=== PATIENT | female | born 2000 | race Caucasian/White ===

== ENCOUNTER 2018-03-16 18:20 | Inpatient (IN) | payer OTHER ==
[~2018-03-16] VITALS: Ht 149.9 cm; Wt 61.2 kg
[2018-03-16] MEDS ORDERED: TERBUTALINE 1 MG/ML VIAL SUBQ SCH (18:40)
[2018-03-16] MEDS ORDERED: TERBUTALINE 1 MG/ML VIAL SUBQ ONE ×2 (19:26→20:00)
[2018-03-16] MEDS ORDERED: BETAMETH ACET/BETAMETH NA PH 30 MG/5 ML VIAL IM ONE ×2 (19:35→20:22)
[2018-03-16] MEDS: LACTATED RINGERS 1,000 ML IV SCH (20:08)
[2018-03-16] MEDS ORDERED: NALBUPHINE 10 MG/ML AMP IVP PRN ×2 (20:25→20:40)
[2018-03-16 21:09] LABS: APPEARANCE,URINE CLEAR (CLEAR); BILIRUBIN,URINE NEGATIVE (NEGATIVE); BLOOD, URINE NEGATIVE (NEGATIVE); COLOR,URINE YELLOW (YELLOW); LEUKOCYTE ESTERASE ,URINE NEGATIVE (NEGATIVE); NITRITE, URINE NEGATIVE (NEGATIVE); UGLUCOSE NEGATIVE (NEGATIVE)
[2018-03-16 21:09] LABS: BASOPHILS % (AUTO) 0.3 % (0.0-2.0); EOSINOPHILS # (AUTO) 0.1 K/uL (0-0.4); EOSINOPHILS % (AUTO) 0.4 % (0.0-4.0); HEMATOCRIT 37.4 % (36-48); HEMOGLOBIN 12.4 g/dL (12.0-16.0); LYMPHOCYTES # (AUTO) 2.3 K/uL (2.5-16.5); LYMPHOCYTES % (AUTO) 18.9 % (20.5-51.1); MEAN CORPUSCULAR HEMOGLOBIN 30 pg (27-31); MEAN CORPUSCULAR HGB CONC 33 g/dL (33-37); MEAN CORPUSCULAR VOLUME 90.4 fL (80-94); MONOCYTES # (AUTO) 0.7 K/uL (0.8-1.0); MONOCYTES % (AUTO) 5.9 % (1.7-9.3); NEUTROPHILS # (AUTO) 9.2 K/uL (1.8-7.7); NEUTROPHILS % (AUTO) 74.5 % (42.2-75.2); PLATELET COUNT (AUTO) 294 K/uL (140-450); RED BLOOD CELL COUNT(AUTO) 4.14 MIL/uL (4.20-5.40); RED CELL DISTRIBUTION WIDTH 20.1 % (11.6-13.7); WHITE BLOOD COUNT (AUTO) 12.4 K/uL (4.5-11.0)
[2018-03-16 21:17] LABS: PROTHROMBIN TIME 9.6 secs (10.8-13.4)
[2018-03-17] MEDS ORDERED: TERBUTALINE 2.5 MG TAB PO SCH
[2018-03-17] MEDS ORDERED: TERBUTALINE 2.5 MG TAB ONE (00:08)
[2018-03-17] MEDS ORDERED: NALBUPHINE 10 MG/ML AMP ONE (00:10)
[2018-03-17] MEDS ORDERED: NIFEdipine 10 MG CAPLF ONE ×5 (01:56→10:34)
[2018-03-17] MEDS: NIFEdipine 10 MG CAPLF PO SCH ×3 (02:06→02:44)
[2018-03-17] MEDS: LACTATED RINGERS 1,000 ML IV SCH ×2 (03:05→06:20)
[2018-03-17] MEDS ORDERED: OXYTOCIN 20 UNITS in LACTATED RINGERS 1,000 ML IV SCH (05:30)
[2018-03-17] MEDS ORDERED: OXYTOCIN 10 UNITS/ML VIAL IM ONE (05:30)
[2018-03-17] MEDS ORDERED: PREN-546 PO (06:29)
[2018-03-17] MEDS ORDERED: BETAMETH ACET/BETAMETH NA PH 30 MG/5 ML VIAL IM ONE (08:39)
[2018-03-17] MEDS ORDERED: AMPICILLIN 2,000 MG VIAL ONE (08:59)
--- NOTE | 2018-03-17 09:25 | NUR ---
PATIENT HAS BEEN SCREENED AND CATEGORIZED LOW NUTRITION RISK. PATIENT WILL BE SEEN WITHIN 7 DAYS OF ADMISSION. 03/23/[address]
[2018-03-17] MEDS ORDERED: AMPICILLIN 2,000 MG in NACL 0.9% 100 ML IV SCH (12:00)
[2018-03-19] MEDS ORDERED: NIFEdipine 10 MG CAPLF PO SCH
== END 2018-03-17 11:54 | disposition short-term general hospital (02) | DRG 563 ==
LOC: MLD 18:20 → OBSVTOIN 18:20 → MFCC 21:43
PROVIDERS: ADMIT Obstetrics & Gynecology; ATTEND Obstetrics & Gynecology
DX: O60.03 Preterm labor without delivery, third trimester (principal); O35.0XX0 Maternal care for (suspected) central nervous system malformation in fetus, not applicable or unspecified; Z90.49 Acquired absence of other specified parts of digestive tract; Z3A.34 34 weeks gestation of pregnancy
CPT/HCPCS: 36415; 76815; 81003; 85025; 85379; 85384; 85610; 85730; 86592; 86886; 86900; 86901; 87653-90; J0290; J0702; J2300; J2590; J3105; J7120; Q0092